=== PATIENT | female | born 1950 | race Caucasian/White ===

== ENCOUNTER 2023-10-13 09:28 | Observation (INO) | payer OTHER ==
[~2023-10-13] VITALS: Ht 144.8 cm; Wt 45.4 kg
[2023-10-13 09:30] VITALS: BP_SYST 122; PULSE 81; RESP 20; TEMP 97.9; O2SAT 97
[2023-10-13 11:21] LABS: BASOPHILS % (AUTO) 0.4 % (0.0-2.0); EOSINOPHILS % (AUTO) 1.5 % (0.0-4.0); HEMATOCRIT 36.7 % (36-48); HEMOGLOBIN 12.5 g/dL (12.0-16.0); LYMPHOCYTES # (AUTO) 0.6 K/uL (1.0-5.5); LYMPHOCYTES % (AUTO) 18.2 % (20.5-51.5); MEAN CORPUSCULAR HEMOGLOBIN 33 pg (27-31); MEAN CORPUSCULAR HGB CONC 34 % (32-36); MEAN CORPUSCULAR VOLUME 98 fL (79.0-98.0); MONOCYTES # (AUTO) 0.2 K/uL (0.0-1.0); MONOCYTES % (AUTO) 6.7 % (1.7-9.3); NEUTROPHILS # (AUTO) 2.3 K/uL (1.8-7.7); NEUTROPHILS % (AUTO) 73.2 % (40.0-70.0); PLATELET COUNT (AUTO) 69 K/uL (130-430); RED BLOOD CELL COUNT(AUTO) 3.73 MIL/uL (4.2-6.2); RED CELL DISTRIBUTION WIDTH 17.7 % (9.0-15.0); WHITE BLOOD COUNT (AUTO) 3.2 K/uL (4.8-10.8)
[2023-10-13 11:31] LABS: ANION GAP 8 (5-15); CALCIUM 9.3 mg/dL (8.4-11.0); CARBON DIOXIDE 30 mmol/L (23-29); CHLORIDE 105 mmol/L (98-107); CREATININE 1.41 mg/dL (0.55-1.30); GLUCOSE 102 mg/dL (74-106); POTASSIUM 4.9 mmol/L (3.5-5.1); SODIUM SERUM 143 mmol/L (136-145); UREA NITROGEN, BLOOD 17 mg/dL (8-21)
[2023-10-13 11:34] LABS: INR 1.4 (0.8-1.2); PROTHROMBIN TIME 14.7 SECS (9.5-12.5)
[2023-10-13 11:39] LABS: ALANINE AMINOTRANSFERASE 27 U/L (12-78); ALBUMIN 2.4 g/dL (3.4-4.8); ASPARTATE AMINOTRANSFERASE 45 U/L (10-37); BILIRUBIN,DIRECT 1.5 mg/dL (0.0-0.3); TOTAL BILIRUBIN 3.9 mg/dL (0.0-1.0); TOTAL PROTEIN, SERUM 6.6 g/dL (6.4-8.3)
[2023-10-13] MEDS: ENOXAPARIN SODIUM 40 MG/0.4 ML SYRINGE SUBCUT SCH (15:03)
[2023-10-13] MEDS ORDERED: PROP10TA10 PO (15:58)
[2023-10-13] MEDS ORDERED: FURO20TA4 PO (15:58)
[2023-10-13] MEDS ORDERED: CHOL100038 PO (15:58)
[2023-10-13] MEDS ORDERED: ALEN35TA17 PO (15:58)
[2023-10-13] MEDS ORDERED: SPIR50TA PO (15:58)
[2023-10-14 00:52] LABS: BILIRUBIN,URINE 1+ (NEGATIVE); BLOOD, URINE 2+ (NEGATIVE); CLARITY/URINE CLEAR (CLEAR); COLOR,URINE YELLOW (YELLOW); GLUCOSE,URINE NEGATIVE (NEGATIVE); KETONES,URINE TRACE (NEGATIVE); LEUKOCYTE ESTERASE ,URINE NEGATIVE (NEGATIVE); NITRITE, URINE NEGATIVE (NEGATIVE); PROTEIN URINE NEGATIVE (NEGATIVE)
[2023-10-14 01:36] LABS: BACTERIA,URINE RARE /HPF (None Seen); WBC,URINE 0-3 /HPF (0-3)
[2023-10-14] MEDS ORDERED: AMOX-404 PO (09:45)
[2023-10-14] MEDS ORDERED: FURO20TA4 PO (11:50)
[2023-10-14 15:34] LABS: BF APPEARANCE UNSPUN CLEAR (CLEAR); BODY FLUID COLOR YELLOW (LT YELLOW); BODY FLUID SOURCE/ TYPE THORACENTESIS; BODY FLUID TOTAL VOLUME 1550 mL; RBC, BODY FLUID 193 /uL; SOURCE/TYPE ,BODY FLUID PLEURAL; WBC, BODY FLUID 26 /uL
[2023-10-14 15:35] LABS: LYMPHOCYTES, BODY FLUID 79 %; NEUTROPHIL, BODY FLUID 21 %
[2023-10-14] MEDS ORDERED: FUROSEMIDE 20 MG TABLET ONE (15:40)
[2023-10-14] MEDS: FUROSEMIDE 20 MG TABLET PO SCH (15:42)
[2023-10-14] MEDS ORDERED: ALENDRONATE SODIUM 35 MG TABLET PO SCH (17:00)
[2023-10-14 18:36] VITALS: BP_SYST 107; PULSE 70; RESP 18; TEMP 97.8
[2023-10-14 18:57] VITALS: BP_SYST 107; PULSE 70; RESP 16; TEMP 98; O2SAT 98
[2023-10-14 20:05] VITALS: BP_SYST 103; PULSE 79; RESP 18; TEMP 98.8; O2SAT 97
[2023-10-15 00:58] VITALS: BP_SYST 100; PULSE 86; RESP 20; TEMP 98.9; O2SAT 95
[2023-10-15 04:22] LABS: BASOPHILS % (AUTO) 0.5 % (0.0-2.0); EOSINOPHILS % (AUTO) 1.5 % (0.0-4.0); HEMATOCRIT 29.5 % (36-48); HEMOGLOBIN 10.1 g/dL (12.0-16.0); LYMPHOCYTES # (AUTO) 0.5 K/uL (1.0-5.5); MEAN CORPUSCULAR HEMOGLOBIN 33 pg (27-31); MEAN CORPUSCULAR HGB CONC 34 % (32-36); MEAN CORPUSCULAR VOLUME 97 fL (79.0-98.0); MONOCYTES # (AUTO) 0.2 K/uL (0.0-1.0); NEUTROPHILS # (AUTO) 1.4 K/uL (1.8-7.7); PLATELET COUNT (AUTO) 55 K/uL (130-430); RED BLOOD CELL COUNT(AUTO) 3.03 MIL/uL (4.2-6.2); RED CELL DISTRIBUTION WIDTH 17.2 % (9.0-15.0); WHITE BLOOD COUNT (AUTO) 2.1 K/uL (4.8-10.8)
[2023-10-15 04:55] LABS: ANION GAP 8 (5-15); CALCIUM 8.2 mg/dL (8.4-11.0); CARBON DIOXIDE 27 mmol/L (23-29); CHLORIDE 106 mmol/L (98-107); CREATININE 1.29 mg/dL (0.55-1.30); GLUCOSE 92 mg/dL (74-106); POTASSIUM 3.8 mmol/L (3.5-5.1); SODIUM SERUM 141 mmol/L (136-145); UREA NITROGEN, BLOOD 18 mg/dL (8-21)
[2023-10-15] MEDS: ALENDRONATE SODIUM 35 MG TABLET PO SCH (05:37)
[2023-10-15] MEDS ORDERED: FUROSEMIDE 20 MG TABLET PO SCH (09:00)
[2023-10-15 09:09] VITALS: BP_SYST 105; PULSE 75; RESP 16; TEMP 94.3; O2SAT 93
[2023-10-15] MEDS ORDERED: LEVO250T73 PO (10:10)
[2023-10-15] MEDS: PROPRANOLOL HCL 10 MG TABLET (INDERAL) PO SCH (10:51)
[2023-10-15] MEDS: SPIRONOLACTONE 50 MG TABLET (ALDACTONE) PO SCH (10:52)
[2023-10-15 11:40] VITALS: BP_SYST 103; PULSE 84; RESP 19; TEMP 98.5; O2SAT 97
[2023-10-15 14:17] VITALS: BP_SYST 106; PULSE 66; RESP 18; TEMP 98; O2SAT 94
== END 2023-10-15 14:48 | disposition home or self-care (01) ==
LOC: SED 09:28 → EDSEX 09:28 → INTOOBSV 11:27 → SMU 11:27
PROVIDERS: ADMIT Specialist; ATTEND Specialist
DX: K76.6 Portal hypertension (principal); J90 Pleural effusion, not elsewhere classified; K74.60 Unspecified cirrhosis of liver; B19.20 Unspecified viral hepatitis C without hepatic coma; J40 Bronchitis, not specified as acute or chronic; Z79.899 Other long term (current) drug therapy
CPT/HCPCS: 96372; 80076; 80048 ×2; 81000; 81015; 81001; 83880; 85025 ×2; 85379; 85610; 85730; 87086; 84484; 36415 ×2; 93005; 71045 ×2; 99285; 84145; 82947; 84157; 89051 ×2; 89060; 32555; 88108; J1650 ×2; G0378 ×3

== ENCOUNTER 2023-10-31 15:34 | Inpatient (IN) | payer OTHER ==
[~2023-10-31] VITALS: Ht 144.8 cm; Wt 45.8 kg
[~2023-10-31 15:34] MED LIST: ALEN35TA17 PO; CHOL100038 PO; FURO20TA4 PO; LEVO250T73 PO; PROP10TA10 PO; SPIR50TA PO
[2023-10-31 15:55] VITALS: BP_SYST 127; PULSE 80; RESP 26; TEMP 97.6; O2SAT 97
[2023-10-31 17:05] LABS: INR 1.4 (0.8-1.2); PROTHROMBIN TIME 13.9 SECS (9.5-12.5)
[2023-10-31 17:08] LABS: BASOPHILS % (AUTO) 0.7 % (0.0-2.0); EOSINOPHILS # (AUTO) 0.1 K/uL (0.0-0.4); EOSINOPHILS % (AUTO) 2.2 % (0.0-4.0); HEMATOCRIT 33.3 % (36-48); HEMOGLOBIN 11.6 g/dL (12.0-16.0); LYMPHOCYTES % (AUTO) 20.4 % (20.5-51.5); MEAN CORPUSCULAR HEMOGLOBIN 34 pg (27-31); MEAN CORPUSCULAR HGB CONC 35 % (32-36); MEAN CORPUSCULAR VOLUME 99 fL (79.0-98.0); MONOCYTES # (AUTO) 0.5 K/uL (0.0-1.0); MONOCYTES % (AUTO) 10.3 % (1.7-9.3); NEUTROPHILS # (AUTO) 3.3 K/uL (1.8-7.7); NEUTROPHILS % (AUTO) 66.4 % (40.0-70.0); PLATELET COUNT (AUTO) 87 K/uL (130-430); RED BLOOD CELL COUNT(AUTO) 3.38 MIL/uL (4.2-6.2); RED CELL DISTRIBUTION WIDTH 20.9 % (9.0-15.0); WHITE BLOOD COUNT (AUTO) 4.9 K/uL (4.8-10.8)
[2023-10-31 17:13] LABS: ALANINE AMINOTRANSFERASE 24 U/L (12-78); ALBUMIN 2.1 g/dL (3.4-4.8); ANION GAP 4 (5-15); ASPARTATE AMINOTRANSFERASE 64 U/L (10-37); CALCIUM 8.2 mg/dL (8.4-11.0); CARBON DIOXIDE 29 mmol/L (23-29); CHLORIDE 104 mmol/L (98-107); CREATININE 1.15 mg/dL (0.55-1.30); GLUCOSE 90 mg/dL (74-106); POTASSIUM 4.3 mmol/L (3.5-5.1); SODIUM SERUM 137 mmol/L (136-145); TOTAL BILIRUBIN 3.6 mg/dL (0.0-1.0); TOTAL PROTEIN, SERUM 5.7 g/dL (6.4-8.3); UREA NITROGEN, BLOOD 27 mg/dL (8-21)
[2023-10-31 17:15] LABS: BILIRUBIN,DIRECT 1.4 mg/dL (0.0-0.3)
[2023-10-31] MEDS ORDERED: FOLI-43 PO (18:03)
[2023-10-31] MEDS ORDERED: ALEN10TA25 PO (18:03)
[2023-10-31] MEDS ORDERED: FURO-150 PO (18:03)
[2023-10-31] MEDS ORDERED: SPIR50TA5 PO (18:03)
[2023-10-31 19:21] LABS: BILIRUBIN,URINE NEGATIVE (NEGATIVE); BLOOD, URINE 1+ (NEGATIVE); COLOR,URINE YELLOW (YELLOW); GLUCOSE,URINE NEGATIVE (NEGATIVE); KETONES,URINE NEGATIVE (NEGATIVE); LEUKOCYTE ESTERASE ,URINE NEGATIVE (NEGATIVE); NITRITE, URINE NEGATIVE (NEGATIVE); PROTEIN URINE NEGATIVE (NEGATIVE); UROBILINOGEN,URINE 0.2 (0.2-1.0)
[2023-10-31 19:32] LABS: CLARITY/URINE SLIGHTLY HAZY (CLEAR)
[2023-10-31 19:33] LABS: BACTERIA,URINE FEW /HPF (None Seen); MUCUS,URINE None Seen /LPF (None Seen); WBC,URINE 0-3 /HPF (0-3)
[2023-10-31] MEDS ORDERED: MORPHINE 2 MG/ML INJ. SYRINGE IVP PRN (20:30)
[2023-10-31] MEDS ORDERED: ACETAMINOPHEN 325 MG TABLET PO PRN (20:30)
[2023-10-31] MEDS ORDERED: ONDANSETRON HCL 4 MG/2 ML VIAL IVP PRN (20:30)
[2023-10-31 22:51] VITALS: BP_SYST 119; PULSE 78; RESP 18; TEMP 97.7; O2SAT 99
[2023-10-31 23:14] VITALS: O2SAT 99
[2023-10-31 23:19] VITALS: BP_SYST 126; PULSE 89; RESP 18; TEMP 97.7; O2SAT 99
[2023-11-01 00:06] VITALS: BP_SYST 110; PULSE 78; RESP 18; TEMP 96.9; O2SAT 94
[2023-11-01 04:00] VITALS: BP_SYST 109; PULSE 78; RESP 18; TEMP 97.7; O2SAT 98
[2023-11-01 05:50] LABS: BASOPHILS % (AUTO) 0.6 % (0.0-2.0); EOSINOPHILS # (AUTO) 0.1 K/uL (0.0-0.4); EOSINOPHILS % (AUTO) 2.8 % (0.0-4.0); HEMATOCRIT 28.9 % (36-48); LYMPHOCYTES # (AUTO) 0.8 K/uL (1.0-5.5); LYMPHOCYTES % (AUTO) 30.6 % (20.5-51.5); MEAN CORPUSCULAR HEMOGLOBIN 34 pg (27-31); MEAN CORPUSCULAR HGB CONC 35 % (32-36); MEAN CORPUSCULAR VOLUME 99 fL (79.0-98.0); MONOCYTES # (AUTO) 0.2 K/uL (0.0-1.0); MONOCYTES % (AUTO) 8.8 % (1.7-9.3); NEUTROPHILS # (AUTO) 1.6 K/uL (1.8-7.7); NEUTROPHILS % (AUTO) 57.2 % (40.0-70.0); PLATELET COUNT (AUTO) 64 K/uL (130-430); RED BLOOD CELL COUNT(AUTO) 2.91 MIL/uL (4.2-6.2); WHITE BLOOD COUNT (AUTO) 2.7 K/uL (4.8-10.8)
[2023-11-01 05:56] LABS: ALANINE AMINOTRANSFERASE 18 U/L (12-78); ALBUMIN 1.8 g/dL (3.4-4.8); ANION GAP 6 (5-15); ASPARTATE AMINOTRANSFERASE 52 U/L (10-37); CALCIUM 8.6 mg/dL (8.4-11.0); CARBON DIOXIDE 29 mmol/L (23-29); CHLORIDE 104 mmol/L (98-107); CREATININE 1.17 mg/dL (0.55-1.30); GLUCOSE 82 mg/dL (74-106); POTASSIUM 4.1 mmol/L (3.5-5.1); SODIUM SERUM 139 mmol/L (136-145); TOTAL BILIRUBIN 3.4 mg/dL (0.0-1.0); TOTAL PROTEIN, SERUM 5.1 g/dL (6.4-8.3); UREA NITROGEN, BLOOD 28 mg/dL (8-21)
[2023-11-01 08:00] VITALS: BP_SYST 101; PULSE 84; RESP 17; TEMP 98.1; O2SAT 95; O2SAT 98
[2023-11-01] MEDS ORDERED: ALEN35TA17 PO (10:19)
[2023-11-01 12:00] VITALS: BP_SYST 112; PULSE 78; RESP 17; TEMP 97.8; O2SAT 94
[2023-11-01] MEDS: FUROSEMIDE 20 MG TABLET PO SCH (14:30)
[2023-11-01] MEDS: ACETAMINOPHEN 325 MG TABLET PO PRN (14:31)
[2023-11-01] MEDS: FOLIC ACID 1 MG TABLET PO ONE (14:34)
[2023-11-01 16:32] LABS: BF APPEARANCE UNSPUN CLEAR (CLEAR); BODY FLUID COLOR YELLOW (LT YELLOW); BODY FLUID TOTAL VOLUME 1850 mL; EOSINOPHIL, BODY FLUID 2 %; LYMPHOCYTES, BODY FLUID 74 %; NEUTROPHIL, BODY FLUID 24 %; RBC, BODY FLUID 92 /uL; SOURCE/TYPE ,BODY FLUID THORACENTESIS; WBC, BODY FLUID 11 /uL
[2023-11-01 19:30] VITALS: BP_SYST 95; PULSE 76; RESP 18; TEMP 96.2; O2SAT 94
[2023-11-02 00:34] LABS: BODY FLUID GLUCOSE 124 mg/dL; BODY FLUID TOTAL PROTEIN 1.3 g/dL
[2023-11-02 00:39] VITALS: BP_SYST 93; PULSE 78; RESP 15; TEMP 98; O2SAT 94
[2023-11-02 05:18] LABS: BASOPHILS % (AUTO) 0.3 % (0.0-2.0); EOSINOPHILS # (AUTO) 0.1 K/uL (0.0-0.4); EOSINOPHILS % (AUTO) 3.1 % (0.0-4.0); HEMATOCRIT 28.9 % (36-48); LYMPHOCYTES # (AUTO) 0.7 K/uL (1.0-5.5); LYMPHOCYTES % (AUTO) 32.3 % (20.5-51.5); MEAN CORPUSCULAR HEMOGLOBIN 35 pg (27-31); MEAN CORPUSCULAR HGB CONC 35 % (32-36); MEAN CORPUSCULAR VOLUME 100 fL (79.0-98.0); MONOCYTES # (AUTO) 0.2 K/uL (0.0-1.0); MONOCYTES % (AUTO) 7.3 % (1.7-9.3); NEUTROPHILS # (AUTO) 1.2 K/uL (1.8-7.7); PLATELET COUNT (AUTO) 53 K/uL (130-430); RED CELL DISTRIBUTION WIDTH 20.5 % (9.0-15.0); WHITE BLOOD COUNT (AUTO) 2.1 K/uL (4.8-10.8)
[2023-11-02 05:42] LABS: ALANINE AMINOTRANSFERASE 17 U/L (12-78); ALBUMIN 1.6 g/dL (3.4-4.8); ANION GAP 5 (5-15); ASPARTATE AMINOTRANSFERASE 49 U/L (10-37); CARBON DIOXIDE 30 mmol/L (23-29); CHLORIDE 106 mmol/L (98-107); CREATININE 1.15 mg/dL (0.55-1.30); GLUCOSE 78 mg/dL (74-106); SODIUM SERUM 141 mmol/L (136-145); TOTAL BILIRUBIN 3.4 mg/dL (0.0-1.0); TOTAL PROTEIN, SERUM 4.7 g/dL (6.4-8.3); UREA NITROGEN, BLOOD 23 mg/dL (8-21)
[2023-11-02 08:00] VITALS: BP_SYST 108; PULSE 86; RESP 18; TEMP 98.1; O2SAT 93
[2023-11-02] MEDS: FOLIC ACID 1 MG TABLET PO SCH (09:21)
[2023-11-02] MEDS: PROPRANOLOL HCL 10 MG TABLET (INDERAL) PO SCH (09:22)
[2023-11-02] MEDS: SPIRONOLACTONE 50 MG TABLET (ALDACTONE) PO SCH (11:01)
[2023-11-02 12:44] VITALS: BP_SYST 108; PULSE 86; RESP 18; TEMP 98.1; O2SAT 93
[2023-11-02 16:45] VITALS: BP_SYST 95; PULSE 77; RESP 16; TEMP 97.4; O2SAT 97
[2023-11-02 20:00] VITALS: BP_SYST 98; PULSE 76; RESP 18; TEMP 98.2; O2SAT 96
[2023-11-03] VITALS: BP_SYST 99; PULSE 70; RESP 18; TEMP 97.8; O2SAT 98
[2023-11-03 06:04] LABS: BASOPHILS % (AUTO) 0.5 % (0.0-2.0); EOSINOPHILS # (AUTO) 0.1 K/uL (0.0-0.4); EOSINOPHILS % (AUTO) 2.8 % (0.0-4.0); HEMOGLOBIN 10.7 g/dL (12.0-16.0); LYMPHOCYTES # (AUTO) 0.9 K/uL (1.0-5.5); LYMPHOCYTES % (AUTO) 30.4 % (20.5-51.5); MEAN CORPUSCULAR HEMOGLOBIN 35 pg (27-31); MEAN CORPUSCULAR HGB CONC 35 % (32-36); MEAN CORPUSCULAR VOLUME 100 fL (79.0-98.0); MONOCYTES # (AUTO) 0.3 K/uL (0.0-1.0); MONOCYTES % (AUTO) 8.6 % (1.7-9.3); NEUTROPHILS # (AUTO) 1.7 K/uL (1.8-7.7); NEUTROPHILS % (AUTO) 57.7 % (40.0-70.0); RED CELL DISTRIBUTION WIDTH 21.1 % (9.0-15.0)
[2023-11-03 06:15] LABS: ALANINE AMINOTRANSFERASE 19 U/L (12-78); ALBUMIN 1.7 g/dL (3.4-4.8); ANION GAP 7 (5-15); ASPARTATE AMINOTRANSFERASE 50 U/L (10-37); CALCIUM 7.7 mg/dL (8.4-11.0); CARBON DIOXIDE 28 mmol/L (23-29); CHLORIDE 105 mmol/L (98-107); CREATININE 1.26 mg/dL (0.55-1.30); GLUCOSE 88 mg/dL (74-106); POTASSIUM 3.7 mmol/L (3.5-5.1); SODIUM SERUM 140 mmol/L (136-145); TOTAL BILIRUBIN 3.4 mg/dL (0.0-1.0); UREA NITROGEN, BLOOD 22 mg/dL (8-21)
[2023-11-03 08:00] VITALS: BP_SYST 102; PULSE 77; RESP 16; TEMP 97.5; O2SAT 95
[2023-11-03 10:42] LABS: PLATELET COUNT (AUTO) 68 K/uL (130-430)
[2023-11-03 11:31] VITALS: BP_SYST 96; PULSE 70; RESP 17; TEMP 98.2; O2SAT 94
[2023-11-03] MEDS: FUROSEMIDE 40 MG/4 ML VIAL IVP ONE (13:58)
[2023-11-03 16:51] VITALS: BP_SYST 99; PULSE 74; RESP 17; TEMP 97.7; O2SAT 94
[2023-11-03 20:47] VITALS: BP_SYST 94; PULSE 68; RESP 18; TEMP 98; O2SAT 97
[2023-11-04] VITALS: BP_SYST 96; PULSE 70; RESP 18; TEMP 97.8; O2SAT 96
[2023-11-04 05:57] LABS: BASOPHILS % (AUTO) 0.7 % (0.0-2.0); EOSINOPHILS # (AUTO) 0.1 K/uL (0.0-0.4); EOSINOPHILS % (AUTO) 3.5 % (0.0-4.0); HEMOGLOBIN 11.4 g/dL (12.0-16.0); LYMPHOCYTES # (AUTO) 0.9 K/uL (1.0-5.5); LYMPHOCYTES % (AUTO) 30.1 % (20.5-51.5); MEAN CORPUSCULAR HEMOGLOBIN 35 pg (27-31); MEAN CORPUSCULAR HGB CONC 35 % (32-36); MEAN CORPUSCULAR VOLUME 101 fL (79.0-98.0); MONOCYTES # (AUTO) 0.2 K/uL (0.0-1.0); MONOCYTES % (AUTO) 7.7 % (1.7-9.3); NEUTROPHILS # (AUTO) 1.6 K/uL (1.8-7.7); PLATELET COUNT (AUTO) 82 K/uL (130-430); RED BLOOD CELL COUNT(AUTO) 3.28 MIL/uL (4.2-6.2)
[2023-11-04 06:30] LABS: ALANINE AMINOTRANSFERASE 20 U/L (12-78); ALBUMIN 1.8 g/dL (3.4-4.8); ANION GAP 4 (5-15); ASPARTATE AMINOTRANSFERASE 51 U/L (10-37); CARBON DIOXIDE 30 mmol/L (23-29); CHLORIDE 106 mmol/L (98-107); CREATININE 1.18 mg/dL (0.55-1.30); GLUCOSE 84 mg/dL (74-106); POTASSIUM 3.7 mmol/L (3.5-5.1); SODIUM SERUM 140 mmol/L (136-145); TOTAL BILIRUBIN 3.6 mg/dL (0.0-1.0); TOTAL PROTEIN, SERUM 5.3 g/dL (6.4-8.3); UREA NITROGEN, BLOOD 21 mg/dL (8-21)
[2023-11-04 07:53] LABS: WHITE BLOOD COUNT (AUTO) 2.8 K/uL (4.8-10.8)
[2023-11-04 08:00] VITALS: BP_SYST 97; PULSE 68; RESP 16; TEMP 97.3; O2SAT 95
[2023-11-04] MEDS: FUROSEMIDE 40 MG/4 ML VIAL IVP SCH (09:00)
[2023-11-04] MEDS: SPIRONOLACTONE 50 MG TABLET (ALDACTONE) PO SCH (09:50)
[2023-11-04 10:27] VITALS: O2SAT 95
[2023-11-04 11:17] VITALS: BP_SYST 104; PULSE 69; RESP 16; TEMP 96.7; O2SAT 97
[2023-11-04 15:23] VITALS: BP_SYST 105; PULSE 74; RESP 16; TEMP 98.8; O2SAT 92
[2023-11-04] MEDS ORDERED: IOHEXOL 350 mgI/mL, 150 ML INFUS..BTL IV ONE (16:13)
[2023-11-04 22:08] VITALS: BP_SYST 96; PULSE 80; RESP 18; TEMP 98.6; O2SAT 93
[2023-11-05] VITALS (7 sets, daily range): BP systolic 92–101; PULSE 73–83; RESP 16–18; TEMP 98.1–98.4; O2SAT 93–100
[2023-11-05 05:41] LABS: BASOPHILS % (AUTO) 0.9 % (0.0-2.0); EOSINOPHILS # (AUTO) 0.1 K/uL (0.0-0.4); EOSINOPHILS % (AUTO) 3.7 % (0.0-4.0); LYMPHOCYTES # (AUTO) 0.8 K/uL (1.0-5.5); LYMPHOCYTES % (AUTO) 29.6 % (20.5-51.5); MEAN CORPUSCULAR HEMOGLOBIN 35 pg (27-31); MEAN CORPUSCULAR HGB CONC 34 % (32-36); MEAN CORPUSCULAR VOLUME 101 fL (79.0-98.0); MONOCYTES # (AUTO) 0.2 K/uL (0.0-1.0); MONOCYTES % (AUTO) 7.8 % (1.7-9.3); NEUTROPHILS # (AUTO) 1.6 K/uL (1.8-7.7); PLATELET COUNT (AUTO) 76 K/uL (130-430); RED BLOOD CELL COUNT(AUTO) 3.17 MIL/uL (4.2-6.2); WHITE BLOOD COUNT (AUTO) 2.7 K/uL (4.8-10.8)
[2023-11-05 06:10] LABS: ALANINE AMINOTRANSFERASE 21 U/L (12-78); ALBUMIN 1.8 g/dL (3.4-4.8); ANION GAP 3 (5-15); ASPARTATE AMINOTRANSFERASE 54 U/L (10-37); CALCIUM 8.1 mg/dL (8.4-11.0); CARBON DIOXIDE 31 mmol/L (23-29); CHLORIDE 105 mmol/L (98-107); CREATININE 1.18 mg/dL (0.55-1.30); GLUCOSE 81 mg/dL (74-106); SODIUM SERUM 139 mmol/L (136-145); TOTAL BILIRUBIN 3.9 mg/dL (0.0-1.0); TOTAL PROTEIN, SERUM 5.2 g/dL (6.4-8.3); UREA NITROGEN, BLOOD 20 mg/dL (8-21)
[2023-11-06 00:06] VITALS: BP_SYST 98; PULSE 83; RESP 16; TEMP 97.9; O2SAT 100
[2023-11-06 05:52] LABS: BASOPHILS % (AUTO) 0.3 % (0.0-2.0); EOSINOPHILS # (AUTO) 0.1 K/uL (0.0-0.4); EOSINOPHILS % (AUTO) 2.5 % (0.0-4.0); HEMATOCRIT 30.2 % (36-48); HEMOGLOBIN 10.6 g/dL (12.0-16.0); LYMPHOCYTES # (AUTO) 0.8 K/uL (1.0-5.5); LYMPHOCYTES % (AUTO) 24.6 % (20.5-51.5); MEAN CORPUSCULAR HEMOGLOBIN 35 pg (27-31); MEAN CORPUSCULAR HGB CONC 35 % (32-36); MEAN CORPUSCULAR VOLUME 100 fL (79.0-98.0); MONOCYTES # (AUTO) 0.2 K/uL (0.0-1.0); MONOCYTES % (AUTO) 7.3 % (1.7-9.3); NEUTROPHILS % (AUTO) 65.3 % (40.0-70.0); PLATELET COUNT (AUTO) 68 K/uL (130-430); RED BLOOD CELL COUNT(AUTO) 3.03 MIL/uL (4.2-6.2); RED CELL DISTRIBUTION WIDTH 20.4 % (9.0-15.0); WHITE BLOOD COUNT (AUTO) 3.1 K/uL (4.8-10.8)
[2023-11-06 06:38] LABS: ALANINE AMINOTRANSFERASE 19 U/L (12-78); ALBUMIN 1.6 g/dL (3.4-4.8); ANION GAP 2 (5-15); ASPARTATE AMINOTRANSFERASE 54 U/L (10-37); CALCIUM 7.9 mg/dL (8.4-11.0); CARBON DIOXIDE 30 mmol/L (23-29); CHLORIDE 104 mmol/L (98-107); CREATININE 1.22 mg/dL (0.55-1.30); GLUCOSE 88 mg/dL (74-106); POTASSIUM 4.3 mmol/L (3.5-5.1); SODIUM SERUM 136 mmol/L (136-145); TOTAL BILIRUBIN 4.8 mg/dL (0.0-1.0); TOTAL PROTEIN, SERUM 4.8 g/dL (6.4-8.3); UREA NITROGEN, BLOOD 19 mg/dL (8-21)
[2023-11-06 08:32] VITALS: O2SAT 93
[2023-11-06 08:37] VITALS: BP_SYST 101; PULSE 81; RESP 16; TEMP 98.5; O2SAT 93
[2023-11-06 11:15] VITALS: BP_SYST 103; PULSE 85; RESP 17; TEMP 97.4; O2SAT 100
[2023-11-06 11:46] VITALS: BP_SYST 108; PULSE 70; RESP 16; TEMP 98.7; O2SAT 95
== END 2023-11-06 15:55 | disposition home health service (06) | DRG 432 ==
LOC: SED 15:34 → STU 20:25 → SMU 11-03 11:48
PROVIDERS: ADMIT Family Medicine; ATTEND Family Medicine
PROC: 0W993ZZ Drainage of Right Pleural Cavity, Percutaneous Approach (ICD-10-PCS; 2023-11-01)
PROC: 0W993ZZ Drainage of Right Pleural Cavity, Percutaneous Approach (ICD-10-PCS; principal; 2023-11-05)
DX: K74.60 Unspecified cirrhosis of liver (principal); E43 Unspecified severe protein-calorie malnutrition; J90 Pleural effusion, not elsewhere classified; J98.11 Atelectasis; D61.818 Other pancytopenia; J94.8 Other specified pleural conditions; E83.51 Hypocalcemia; B19.20 Unspecified viral hepatitis C without hepatic coma; E80.6 Other disorders of bilirubin metabolism; Z68.21 Body mass index [BMI] 21.0-21.9, adult; Z79.899 Other long term (current) drug therapy
CPT/HCPCS: 32555; 36415; 71045; 76700; 80048; 80053; 80076; 81000; 81001; 81015; 82105; 82947; 84157; 84484; 85025; 85610; 87081; 89051; 89060; 93005; 97110-GP; 97116-GP; 97530-GP; 99285; G0378; J1940; Q9967